=== PATIENT | male | born 1950 | race Caucasian/White ===

== ENCOUNTER 2017-12-25 08:00 | Inpatient (IN) | payer OTHER ==
[~2017-12-25] VITALS: Ht 182.9 cm; Wt 69.6 kg
[2017-12-25 08:26] VITALS: BP 110/61
[2017-12-25 08:52] VITALS: Ht 182.9 cm; Wt 69.6 kg
[2017-12-25 12:03] LABS: RED CELL DISTRIBUTION WIDTH 18.6 % (11.5-14.5)
[2017-12-25 12:05] LABS: PLATELET COUNT 15 x10^3mcL (130-400)
[2017-12-25 12:35] LABS: BAND NEUTROPHIL 25 % (0-10); SEGMENTED NEUTROPHILS 57 % (37-75)
[2017-12-25 12:36] LABS: MONOCYTE 13 % (0-7); rbc morphology (normal/abnorm) ABNORMAL (NORMAL)
[2017-12-25 12:37] LABS: PLATELET MORPHOLOGY PLATELETS DECREASED
[2017-12-25 13:09] VITALS: BP 103/56
[2017-12-25 15:30] VITALS: BP 111/63
[2017-12-25] MEDS ORDERED: ATENOLOL50 MG PO (16:24)
[2017-12-25] MEDS ORDERED: COLACE100 MG PO (16:25)
[2017-12-25] MEDS ORDERED: COMPAZINE IM (16:26)
[2017-12-25] MEDS ORDERED: SENEXON-S1 TAB PO (16:27)
[2017-12-25] MEDS ORDERED: BACLOFEN10 MG PO (16:27)
[2017-12-25] MEDS ORDERED: XANAX0.25 MG PO (16:28)
[2017-12-25] MEDS ORDERED: DILAUDID (16:30)
[2017-12-25 17:28] VITALS: BP 111/63
[2017-12-25 20:25] LABS: RED CELL DISTRIBUTION WIDTH 18.4 % (11.5-14.5)
[2017-12-25 20:26] LABS: PLATELET COUNT 17 x10^3mcL (130-400)
[2017-12-25 20:28] LABS: rbc morphology (normal/abnorm) ABNORMAL (NORMAL)
[2017-12-25 20:29] LABS: BAND NEUTROPHIL 10 % (0-10); BASOPHIL 0 % (0-2); MONOCYTE 12 % (0-7); PLATELET MORPHOLOGY PLATELETS DECREASED; SEGMENTED NEUTROPHILS 70 % (37-75)
== END 2017-12-25 18:21 | disposition hospice, home (50) | DRG 182 ==
LOC: MU 08:00
PROVIDERS: Family Medicine
DX: C34.90 Malignant neoplasm of unspecified part of unspecified bronchus or lung (principal); D50.9 Iron deficiency anemia, unspecified; Z66 Do not resuscitate; Z51.5 Encounter for palliative care; D63.8 Anemia in other chronic diseases classified elsewhere; D69.6 Thrombocytopenia, unspecified; D72.819 Decreased white blood cell count, unspecified; Z53.29 Procedure and treatment not carried out because of patient's decision for other reasons; Z90.49 Acquired absence of other specified parts of digestive tract; Z87.891 Personal history of nicotine dependence
CPT/HCPCS: 83880; 84439; C9113; J7050; P9016; Q0092; Q0163